=== PATIENT | female | born 1980 | race American Indian/Alaskan Native ===

== ENCOUNTER 2017-01-01 13:51 | Emergency (ER) | payer OTHER ==
[2017-01-01 14:09] VITALS: BP 127/93; PULSE 82; RESP 15; TEMP 98.7; O2SAT 99
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
== END 2017-01-01 15:43 | disposition home or self-care (01) ==
LOC: C.ER 13:51
DX: M79.1 Myalgia (principal); V43.52XA Car driver injured in collision with other type car in traffic accident, initial encounter; Y92.410 Unspecified street and highway as the place of occurrence of the external cause

== ENCOUNTER 2018-12-24 11:19 | Emergency (ER) | payer OTHER ==
[2018-12-24 11:29] VITALS: BP 122/84; PULSE 81; RESP 20; TEMP 98.1; O2SAT 99
--- NOTE | 2018-12-24 11:41 | C.PDOC ---
History Of Present Illness 38 y/o female presents to the ED complaining of itchiness to her left foot for the last 9 days. She also noticed some redness to the top of the left foot in last day. Otherwise patient denies any weakness, numbness, tingling, fever or chills. Time Seen by Provider: 12/24/18 11:30 Chief Complaint (Nursing): Lower Extremity Problem/Injury History Per: Patient History/Exam Limitations: no limitations Onset/Duration Of Symptoms: Days Current Symptoms Are (Timing): Still Present Past Medical History Reviewed: Historical Data, Nursing Documentation, Vital Signs Vital Signs: Last Vital Signs Temp 98.1 F 12/24/18 11:28 Pulse 81 12/24/18 11:28 Resp 20 12/24/18 11:28 BP 122/84 12/24/18 11:28 Pulse Ox 99 12/24/18 11:28 Family History: States: No Known Family Hx - Social History Hx Tobacco Use: No Hx Alcohol Use: No Hx Substance Use: No Review Of Systems Constitutional: Negative for: Fever, Chills Musculoskeletal: Negative for: Foot Pain Skin: Positive for: Rash (itchiness to left foot) Neurological: Negative for: Weakness, Numbness Physical Exam - Physical Exam Appears: Non-toxic, No Acute Distress Skin: Warm, Rash (Left foot: Whitish moist area between the 4th and 5th toes, and erythema between 3rd and 4th toes; curved area of erythema and warmth to dorsum of left foot from toes covering about 1/4 dorsum foot. ) Respiratory: No Accessory Muscle Use, Other (Normal inspiratory effort, Speaking in complete sentences) Extremity: Normal ROM (of left foot), Capillary Refill (< 2 sec), No Deformity, No Swelling Pulses: Left Dorsalis Pedis: Normal, Right Dorsalis Pedis: Normal Neurological/Psych: Oriented x3, Normal Cognition, Normal Motor, Normal Sensation Gait: Steady ED Course And Treatment O2 Sat by Pulse Oximetry: 99 (RA) Pulse Ox Interpretation: Normal Medical Decision Making Medical Decision Making: Impression: Tinea Pedis, Cellulitis Plan: Patient will be discharged home with Rx for Cephalexin, Tylenol, and Lotrimin cream. Disposition Counseled Patient/Family Regarding: Diagnosis, Need For Followup, Rx Given - Disposition Referrals: [facility] [Outside] [facility] [Outside] Disposition: HOME/ ROUTINE Disposition Time: 11:39 Condition: GOOD Additional Instructions: Apply antifungal cream between toes on left foot two times a day. Take antibiotics as prescribed until completed. Dry between toes well after bathing. If redness on foot increases from area drawn today, or pain worse or fever develops, return to ER, otherwise follow up with your doctor or in podiatry clin ic in a few days. Prescriptions: Acetaminophen [Tylenol 325mg tab] 650 mg PO Q4 #50 tab Butenafine HCl [Lotrimin Ultra] 1 applic TP BID #30 cream..g. 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 - Scribe Statement The provider has reviewed the documentation as recorded by the Scribhussain Garcia All medical record entries made by the Marii were at my direction and personally dictated by me. I have reviewed the chart and agree that the record accurately reflects my personal performance of the history, physical exam, medical decision making, and the department course for this patient. I have also personally directed, reviewed, and agree with the discharge instructions and disposition.
== END 2018-12-24 11:56 | disposition home or self-care (01) ==
LOC: C.ER 11:19
DX: B35.3 Tinea pedis (principal); L03.116 Cellulitis of left lower limb